=== PATIENT | female | born 2000 | race Caucasian/White ===

== ENCOUNTER 2022-02-09 10:03 | Emergency (ER) | payer BC, SELFPAY ==
[2022-02-09 10:15] VITALS: BP 144/95; PULSE 114; RESP 16; TEMP 36.8; O2SAT 100
--- NOTE | 2022-02-09 12:43 | ED.GENADULT ---
HPI - General Adult General Chief complaint: Unspecified Stated complaint: neck pain and migraine Time Seen by Provider: 02/09/22 11:47 History of Present Illness HPI narrative: 21-year-old female presents to our department with multiple complaints that been going on for the past 2 months. Patient states quite a bit of tightness in the right side of her neck and that her neck is difficult to turn. This causes headaches as well as tingling in her shoulder. She first noticed the symptoms when she was in [place] 2 months ago. And it has progressively worsened since then. Patient also states frequent gagging and that sometimes she has difficulty swallowing food. Related Data Allergies Allergy/AdvReac Type Severity Reaction Status Date / Time No Known Allergies Allergy Mild Verified 02/09/22 10:04 Review of Systems Review of Systems: CONSTITUTIONAL: Denies fever, chills, or sweats. EYES: Denies visual changes, redness, or discharge. ENT: Denies rhinorrhea, congestion, sore throat, or otalgia. CARDIOVASCULAR: Denies chest pain, palpitations, or edema. RESPIRATORY: Denies cough or dyspnea. GASTROINTESTINAL: Denies abdominal pain, nausea, vomiting, or diarrhea. GENITOURINARY: Denies dysuria or hematuria. SKIN: Denies rash or itching. MUSCULOSKELETAL: Denies back pain, joint pain, or myalgia. NEUROLOGIC: Denies headache, numbness, or weakness. PSYCHIATRIC: Denies anxiety or depression. Exam Narrative: GENERAL: Well-appearing, well-nourished, and in no acute distress. HEAD: Normocephalic, atraumatic. EYES: PERRLA and EOMI. ENT: Nares clear, or epistaxis. Mucous membranes moist. Postnasal drip noted and sinus congestion noted NECK: Notable muscle spasm in the right middle scalene which is tender to the touch. CHEST: Clear to auscultation. No respiratory distress. HEART: Regular rate and rhythm. No murmur heard. Normal peripheral pulses. ABDOMEN: Soft, nontender, nondistended, normal active bowel sounds. EXTREMITIES: Normal range of motion. No edema. SKIN: Warm, dry, no rash. NEURO: No focal deficits. Alert and oriented x3. PSYCH: Normal mood and affect. Course Vital Signs Vital signs: Vital Signs Temperature 98.3 F 02/09/22 10:15 Pulse Rate 114 H 02/09/22 10:15 Respiratory Rate 16 02/09/22 10:15 Blood Pressure 144/95 H 02/09/22 10:15 Pulse Oximetry 100 02/09/22 10:15 Oxygen Delivery Room Air 02/09/22 10:15 Temperature 98.3 F 02/09/22 10:15 Pulse Rate 114 H 02/09/22 10:15 Respiratory Rate 17 02/09/22 13:21 Blood Pressure 144/95 H 02/09/22 10:15 Pulse Oximetry 99 02/09/22 13:21 Oxygen Delivery Room Air 02/09/22 10:15 Medical Decision Making MDM Narrative Medical decision making narrative: Of note patient has prescribed allergy medicine in the past and she is not taking any of these medications. She has not taken any pain medications today. We have discussed physical therapy, stretching and I have given a shot of Toradol and Decadron. Patient will also start taking Flonase and an antihistamine. She will follow-up with her PCP if these treatments are not effective. I do not suspect more serious pathology and no emergency intervention is warranted at this time. Vital Signs Vital Signs: Vital Signs Temperature 98.3 F 02/09/22 10:15 Pulse Rate 114 H 02/09/22 10:15 Respiratory Rate 16 02/09/22 10:15 Blood Pressure 144/95 H 02/09/22 10:15 Pulse Oximetry 100 02/09/22 10:15 Oxygen Delivery Room Air 02/09/22 10:15 Temperature 98.3 F 02/09/22 10:15 Pulse Rate 114 H 02/09/22 10:15 Respiratory Rate 17 02/09/22 13:21 Blood Pressure 144/95 H 02/09/22 10:15 Pulse Oximetry 99 02/09/22 13:21 Oxygen Delivery Room Air 02/09/22 10:15 Discharge Plan Discharge Clinical Impression: Allergic rhinitis, Muscle spasms of neck Patient Disposition: Home, Self-Care Condition: Stable Instructions: Antibiotic Form Additional Instructions: [place]
[2022-02-09 13:21] VITALS: RESP 17; O2SAT 99
[2022-02-09] MEDS: KETOROLAC 30 MG/ML VIAL (*BKC) 15 MG IM (13:24)
[2022-02-09] MEDS: DEXAMETHASONE 2 MG TABLET 10 MG PO (13:25)
== END 2022-02-09 14:43 | disposition home or self-care (01) ==
PROVIDERS: Emergency Provider Emergency Medicine; PCP Pediatrics
DX: M62.838 Other muscle spasm (principal); J30.9 Allergic rhinitis, unspecified
CPT/HCPCS: 96372; 99283; J1885; J8540